=== PATIENT | male | born 2000 | race Caucasian/White ===

== ENCOUNTER 2020-08-25 12:49 | Emergency (ER) | payer OTHER ==
[~2020-08-25] VITALS: Ht 172.7 cm; Wt 86.2 kg
[2020-08-25] MEDS ORDERED: QUET200T PO (13:14)
[2020-08-25] MEDS ORDERED: MUSCLE RELAXANT (13:14)
--- NOTE | 2020-08-25 13:45 | NUR ---
Dr Boggs at bedside for MSE. I&D set up requested, ready.
[2020-08-25] MEDS ORDERED: SULFAMETH/TRIMETH 800/160 MG TABLET PO ONE (14:00)
[2020-08-25] MEDS ORDERED: SULF1TAB48 PO (14:05)
[2020-08-25] MEDS ORDERED: IBUP-1955 PO (14:05)
[2020-08-25] MEDS ORDERED: SULFAMETH/TRIMETH 800/160 MG TABLET ONE (14:15)
[2020-08-25] MEDS ORDERED: IBUPROFEN 600 MG TABLET ONE (14:15)
[2020-08-25] MEDS ORDERED: IBUPROFEN 600 MG TABLET PO ONE (14:15)
--- NOTE | 2020-08-25 14:20 | NUR ---
Dr Boggs performed I&D on sacral area, with moderate pus/bloody drainage. Packed with 1/4 inch iodoform gauze. Area cleaned after and cover with dry gauze and paper tape. Pt tolerated the procedure. Oral ATB and analgesic administered as ordered. Patient discharged to home in stable condition. Written and verbal after care instructions given, including the prescriptions. Patient verbalizes understanding of instructions. Stressed follow up within 2 days for wound re check or return to ER for worsening s/s. AMbulated out of Ed in steady gait.
[2020-08-25 14:40] VITALS: BP 135/85
== END 2020-08-25 14:30 | disposition home or self-care (01) ==
LOC: ER 12:49
DX: L05.01 Pilonidal cyst with abscess (principal); F17.290 Nicotine dependence, other tobacco product, uncomplicated; F90.9 Attention-deficit hyperactivity disorder, unspecified type
CPT/HCPCS: A4663

== ENCOUNTER 2020-08-27 09:34 | Emergency (ER) | payer OTHER ==
[~2020-08-27] VITALS: Ht 170.2 cm; Wt 87.1 kg
[~2020-08-27 09:34] MED LIST: IBUP-1955 PO; MUSCLE RELAXANT; QUET200T PO; SULF1TAB48 PO
--- NOTE | 2020-08-27 09:53 | NUR ---
DR Machuca at the bedside for MSE.
--- NOTE | 2020-08-27 10:06 | NUR ---
Patient discharged to home in stable condition & brisk steady gait. Written and verbal after care instructions given. Patient verbalized understanding & compliance of instructions. Stressed follow up his primary doctor or return to ER for worsening s/s.
== END 2020-08-27 10:06 | disposition home or self-care (01) ==
LOC: ER 09:36
DX: Z48.817 Encounter for surgical aftercare following surgery on the skin and subcutaneous tissue (principal); L05.01 Pilonidal cyst with abscess; F17.290 Nicotine dependence, other tobacco product, uncomplicated; F90.9 Attention-deficit hyperactivity disorder, unspecified type; Z79.899 Other long term (current) drug therapy
CPT/HCPCS: A4663